=== PATIENT | male | born 1970 | race Caucasian/White ===

== ENCOUNTER → 2018-02-03 | Outpatient (CLI) | payer BC ==
[~2018-02-03] MED LIST: AMLO5 PO; BENTYL20 MG PO; CIPR500 PO; Cipro500 MG PO; Compazine10 MG PO; DOCU100 PO; Flagyl500 MG PO; GAVILAX17 GM PO; GLYB2.5 PO; Glucophage1000 MG PO; HYOS.125 SL; IBUP600 PO; INSULANPEN SC; LACT10SY PO; LAVAP17G; LAVAP17G PO; LEVEMIR FL100 UNIT/1 SC; LINZESS145 MCG PO; Lisinopril2.5 MG PO; MARIJUANA INH; METF500 PO; METO10 PO; METR500 PO; MOXI400 PO; Magnesium Citr296 ML PO; Mobic15 MG PO; NORT25 PO; Neurontin 300300 MG PO; OMEP20ER PO; OMEP40CA12 PO; ONDA4ODT MM; ONDA8 PO; OXYACE5T PO; PROM25 PO; PSYL5.85P PO; Pepcid40 MG PO; Percocet 5-3251 EACH PO; Phenergan25 M1; Prilosec Otc20 MG PO; Prinivil10 MG PO; Protonix40 MG PO; RANI150 PO; RXONDA4ODT MM; RXOXYACE PO; Reglan10 MG PO; SIMV10 PO; Ultram50 MG PO; Zantac150 MG PO; Zofran Odt4 MG SL
[2018-02-03 18:51] LABS: BASOPHILS ABSOLUTE AUTO 0.05 K/mm3 (0.00-0.23); BASOPHILS PERCENT AUTO 0 % (0-2); EOSINOPHILS ABSOLUTE AUTO 0.06 K/mm3 (0.00-0.68); EOSINOPHILS PERCENT AUTO 0 % (0-6); Hematocrit 49.1 % (37.0-53.0); Hemoglobin 17.1 g/dL (13.5-17.5); IMMATURE GRAN ABSOLUTE AUTO 0.13 K/mm3 (0.00-0.10); IMMATURE GRAN PERCENT AUTO 1 % (0-1); LYMPHOCYTES ABSOLUTE AUTO 2.93 K/mm3 (0.84-5.20); LYMPHOCYTES PERCENT AUTO 13 % (21-46); MONOCYTES ABSOLUTE AUTO 1.53 K/mm3 (0.16-1.47); MONOCYTES PERCENT AUTO 7 % (4-13); Mean Corpuscular HGB 29.6 pg (26.0-34.0); Mean Corpuscular HGB Conc 34.8 g/dL (31.5-36.5); Mean Corpuscular Volume 85 fL (80-100); Mean Platelet Volume 9.6 fL (9.1-12.4); NEUTROPHILS PERCENT AUTO 79 % (41-73); Platelet Count 300 K/mm3 (150-400); RDW Coefficient Variation 13.2 % (11.7-14.2); RDW Standard Deviation 40.6 fL (35.1-46.3); Red Blood Cell Count 5.78 M/mm3 (4.30-5.90)
[2018-02-03 19:09] LABS: Albumin, Blood 4.1 g/dL (3.4-5.0); Bilirubin, Total 1.2 mg/dL (0.1-1.0); Bun/Creatinine Ratio 25.4 (12.0-20.0); Calcium, Blood 9.4 mg/dL (8.5-10.1); Creatinine, Blood 1.38 mg/dL (0.60-1.20); Potassium, Blood 3.7 mmol/L (3.5-5.5); Total Protein, Blood 8.1 g/dL (6.4-8.2)
== END | disposition home or self-care (01) ==
LOC: LAB EV 18:47 → LAB SHORT 18:47
PROVIDERS: Physician Assistant
DX: R10.11 Right upper quadrant pain (principal)
CPT/HCPCS: 80053; 83690; 85025

== ENCOUNTER 2018-05-12 20:30 | Emergency (ER) | payer BC ==
[~2018-05-12] VITALS: Ht 172.7 cm; Wt 90.7 kg
[2018-05-12 21:01] LABS: BASOPHILS ABSOLUTE AUTO 0.05 K/mm3 (0.00-0.23); BASOPHILS PERCENT AUTO 0 % (0-2); EOSINOPHILS ABSOLUTE AUTO 0.17 K/mm3 (0.00-0.68); EOSINOPHILS PERCENT AUTO 1 % (0-6); Hematocrit 46.1 % (37.0-53.0); Hemoglobin 15.6 g/dL (13.5-17.5); IMMATURE GRAN ABSOLUTE AUTO 0.13 K/mm3 (0.00-0.10); IMMATURE GRAN PERCENT AUTO 1 % (0-1); LYMPHOCYTES ABSOLUTE AUTO 2.21 K/mm3 (0.84-5.20); LYMPHOCYTES PERCENT AUTO 12 % (21-46); MONOCYTES ABSOLUTE AUTO 0.98 K/mm3 (0.16-1.47); MONOCYTES PERCENT AUTO 5 % (4-13); Mean Corpuscular HGB 29.2 pg (26.0-34.0); Mean Corpuscular HGB Conc 33.8 g/dL (31.5-36.5); Mean Corpuscular Volume 86 fL (80-100); Mean Platelet Volume 9.9 fL (9.1-12.4); NEUTROPHILS ABSOLUTE AUTO 15.68 K/mm3 (1.96-9.15); NEUTROPHILS PERCENT AUTO 82 % (41-73); Platelet Count 266 K/mm3 (150-400); RDW Coefficient Variation 12.8 % (11.7-14.2); RDW Standard Deviation 39.9 fL (35.1-46.3); Red Blood Cell Count 5.35 M/mm3 (4.30-5.90); White Blood Cell Count 19.22 K/mm3 (4.00-11.30)
[2018-05-12 21:13] LABS: International Normalized Ratio 0.97
[2018-05-12 21:16] LABS: Alanine Aminotransfer (ALT/SGP 28 U/L (12-78); Albumin, Blood 3.8 g/dL (3.4-5.0); Albumin/Globulin Ratio 1.1 (0.8-1.8); Alk Phos 87 U/L (50-136); Anion Gap 10 mmol/L (6-16); Aspartate Aminotrans (AST/SGOT 22 U/L (12-37); Bilirubin, Total 0.5 mg/dL (0.1-1.0); Blood Urea Nitrogen 22 mg/dL (8-24); Bun/Creatinine Ratio 25.6 (12.0-20.0); CO2, Blood 24 mmol/L (21-32); Calcium, Blood 9.4 mg/dL (8.5-10.1); Chloride, Blood 103 mmol/L (98-108); Creatinine, Blood 0.86 mg/dL (0.60-1.20); Ethanol (Alcohol), Blood, Med <3 mg/dL; Globulin, Blood 3.5 g/dL (2.2-4.0); Glomerular Filtration Rate >60 (60-); Glucose, Blood 327 mg/dL (70-99); Potassium, Blood 4.4 mmol/L (3.5-5.5); Sodium, Blood 137 mmol/L (136-145); Total Protein, Blood 7.3 g/dL (6.4-8.2)
[2018-05-12] MEDS ORDERED: ROXICODONE5 MG PO (23:18)
[2018-05-12] MEDS ORDERED: IBUP800 PO (23:18)
== END 2018-05-12 23:34 | disposition home or self-care (01) ==
LOC: ER 20:30
PROVIDERS: Emergency Medicine
DX: S06.9X1A Unspecified intracranial injury with loss of consciousness of 30 minutes or less, initial encounter (principal); S42.112A Displaced fracture of body of scapula, left shoulder, initial encounter for closed fracture; S22.059A Unspecified fracture of T5-T6 vertebra, initial encounter for closed fracture; S22.069A Unspecified fracture of T7-T8 vertebra, initial encounter for closed fracture; S40.212A Abrasion of left shoulder, initial encounter; S00.81XA Abrasion of other part of head, initial encounter; S20.312A Abrasion of left front wall of thorax, initial encounter; S20.311A Abrasion of right front wall of thorax, initial encounter; S30.811A Abrasion of abdominal wall, initial encounter; E11.9 Type 2 diabetes mellitus without complications; Z88.0 Allergy status to penicillin; Z79.4 Long term (current) use of insulin; Z87.891 Personal history of nicotine dependence; V86.59XA Driver of other special all-terrain or other off-road motor vehicle injured in nontraffic accident, initial encounter
CPT/HCPCS: 36415; 70450; 71260; 72125; 74177; 80053; 85025; 85610; 96374; 96375; 99284-25; G0480; J2405; J3010; Q9967

== ENCOUNTER 2023-02-25 19:27 | Emergency (ER) | payer OTHER ==
[~2023-02-25] VITALS: Ht 167.6 cm; Wt 87.1 kg
[~2023-02-25 19:27] MED LIST changes: +CLIN300 PO; +IBUP800 PO; +ROXICODONE5 MG PO
[2023-02-25 19:34] VITALS: BP 179/102
[2023-02-25 20:21] LABS: BASOPHILS ABSOLUTE AUTO 0.06 K/mm3 (0.00-0.23); BASOPHILS PERCENT AUTO 1 % (0-2); EOSINOPHILS ABSOLUTE AUTO 0.17 K/mm3 (0.00-0.68); EOSINOPHILS PERCENT AUTO 2 % (0-6); Hematocrit 45.9 % (37.0-53.0); Hemoglobin 15.4 g/dL (13.5-17.5); IMMATURE GRAN ABSOLUTE AUTO 0.04 K/mm3 (0.00-0.10); IMMATURE GRAN PERCENT AUTO 1 % (0-1); LYMPHOCYTES ABSOLUTE AUTO 2.06 K/mm3 (0.84-5.20); LYMPHOCYTES PERCENT AUTO 25 % (21-46); MONOCYTES ABSOLUTE AUTO 0.55 K/mm3 (0.16-1.47); MONOCYTES PERCENT AUTO 7 % (4-13); Mean Corpuscular HGB 28.1 pg (26.0-34.0); Mean Corpuscular HGB Conc 33.6 g/dL (31.5-36.5); Mean Corpuscular Volume 84 fL (80-100); Mean Platelet Volume 9.4 fL (9.1-12.4); NEUTROPHILS ABSOLUTE AUTO 5.28 K/mm3 (1.96-9.15); NEUTROPHILS PERCENT AUTO 65 % (41-73); Platelet Count 277 K/mm3 (150-400); RDW Coefficient Variation 12.6 % (11.7-14.2); RDW Standard Deviation 38.3 fL (35.1-46.3); Red Blood Cell Count 5.49 M/mm3 (4.30-5.90); White Blood Cell Count 8.16 K/mm3 (4.00-11.30)
[2023-02-25 20:34] LABS: Albumin/Globulin Ratio 0.4 (0.8-1.8); Bilirubin, Total 0.4 mg/dL (0.1-1.0); Bun/Creatinine Ratio 20.6 (12.0-20.0); Calcium, Blood 8.7 mg/dL (8.5-10.1); Creatinine, Blood 1.6 mg/dL (0.60-1.20); Globulin, Blood 4.5 g/dL (2.2-4.0); Potassium, Blood 4.7 mmol/L (3.5-5.5); Total Protein, Blood 6.5 g/dL (6.4-8.2)
== END 2023-02-25 20:45 | disposition home or self-care (01) ==
LOC: ER 19:27
PROVIDERS: Physician Assistant
DX: M79.89 Other specified soft tissue disorders (principal); Z88.0 Allergy status to penicillin; Z79.899 Other long term (current) drug therapy; Z79.4 Long term (current) use of insulin; E11.9 Type 2 diabetes mellitus without complications; K21.9 Gastro-esophageal reflux disease without esophagitis; Z87.891 Personal history of nicotine dependence
CPT/HCPCS: 36415; 80053; 85025; 99283; A9270

== ENCOUNTER → 2023-04-13 | Outpatient (CLI) | payer OTHER | END | disposition home or self-care (01) | LOC: LAB 08:56 → LAB SHORT 08:56 | DX: L02.31 Cutaneous abscess of buttock (principal); L03.317 Cellulitis of buttock | CPT/HCPCS: 87070; 87075; 87076; 87205 ==

== ENCOUNTER 2023-06-23 13:47 | Emergency (ER) | payer OTHER ==
[~2023-06-23] VITALS: Ht 167.6 cm; Wt 79.4 kg
[2023-06-23 14:26] VITALS: BP 182/105
[2023-06-23] MEDS ORDERED: ACET325 (16:16)
[2023-06-23] MEDS ORDERED: TRAM50 (16:16)
[2023-06-23] MEDS ORDERED: Percocet 5-3251 EACH PO (16:23)
== END 2023-06-23 16:33 | disposition home or self-care (01) ==
LOC: ER 13:47
DX: S76.911A Strain of unspecified muscles, fascia and tendons at thigh level, right thigh, initial encounter (principal); S39.011A Strain of muscle, fascia and tendon of abdomen, initial encounter; E11.9 Type 2 diabetes mellitus without complications; W18.31XA Fall on same level due to stepping on an object, initial encounter; Z88.0 Allergy status to penicillin; Z79.4 Long term (current) use of insulin; Z79.899 Other long term (current) drug therapy; Z87.891 Personal history of nicotine dependence
CPT/HCPCS: 99283

== ENCOUNTER 2023-08-20 20:48 | Emergency (ER) | payer OTHER ==
[~2023-08-20] VITALS: Ht 167.6 cm; Wt 80.7 kg
[~2023-08-20 20:48] MED LIST changes: +ACET325; +TRAM50
[2023-08-20 21:19] VITALS: BP 166/106
[2023-08-20 21:41] LABS: BASOPHILS ABSOLUTE AUTO 0.12 K/mm3 (0.00-0.23); BASOPHILS PERCENT AUTO 2 % (0-2); EOSINOPHILS ABSOLUTE AUTO 0.31 K/mm3 (0.00-0.68); EOSINOPHILS PERCENT AUTO 4 % (0-6); Hematocrit 46.1 % (37.0-53.0); Hemoglobin 14.6 g/dL (13.5-17.5); IMMATURE GRAN ABSOLUTE AUTO 0.03 K/mm3 (0.00-0.10); IMMATURE GRAN PERCENT AUTO 0 % (0-1); LYMPHOCYTES ABSOLUTE AUTO 1.94 K/mm3 (0.84-5.20); LYMPHOCYTES PERCENT AUTO 25 % (21-46); MONOCYTES ABSOLUTE AUTO 0.62 K/mm3 (0.16-1.47); MONOCYTES PERCENT AUTO 8 % (4-13); Mean Corpuscular HGB 28.8 pg (26.0-34.0); Mean Corpuscular HGB Conc 31.7 g/dL (31.5-36.5); Mean Corpuscular Volume 91 fL (80-100); Mean Platelet Volume 10.3 fL (9.1-12.4); NEUTROPHILS PERCENT AUTO 62 % (41-73); Platelet Count 305 K/mm3 (150-400); RDW Coefficient Variation 13.9 % (11.7-14.2); RDW Standard Deviation 46.1 fL (35.1-46.3); Red Blood Cell Count 5.07 M/mm3 (4.30-5.90); White Blood Cell Count 7.92 K/mm3 (4.00-11.30)
[2023-08-20 22:00] LABS: Albumin, Blood 2.1 g/dL (3.4-5.0); Albumin/Globulin Ratio 0.6 (0.8-1.8); Bilirubin, Total 0.3 mg/dL (0.1-1.0); Bun/Creatinine Ratio 21.8 (12.0-20.0); Calcium, Blood 8.2 mg/dL (8.5-10.1); Creatinine, Blood 1.79 mg/dL (0.60-1.20); Globulin, Blood 3.8 g/dL (2.2-4.0); Potassium, Blood 4.8 mmol/L (3.5-5.5); Total Protein, Blood 5.9 g/dL (6.4-8.2)
[2023-08-20] MEDS ORDERED: Lasix20 MG PO (23:28)
[2023-08-20] MEDS ORDERED: Norvasc5 MG PO (23:30)
[2023-08-20] MEDS ORDERED: ACETAMINOPHEN500 MG PO (23:31)
== END 2023-08-21 01:35 | disposition home or self-care (01) ==
LOC: ER 20:48
PROVIDERS: Emergency Medicine
DX: I13.0 Hypertensive heart and chronic kidney disease with heart failure and stage 1 through stage 4 chronic kidney disease, or unspecified chronic kidney disease (principal); N18.30 Chronic kidney disease, stage 3 unspecified; I50.9 Heart failure, unspecified; N50.89 Other specified disorders of the male genital organs; E11.22 Type 2 diabetes mellitus with diabetic chronic kidney disease; Z88.0 Allergy status to penicillin; Z79.899 Other long term (current) drug therapy; Z79.4 Long term (current) use of insulin; K21.9 Gastro-esophageal reflux disease without esophagitis; F17.200 Nicotine dependence, unspecified, uncomplicated
CPT/HCPCS: 71046; 80053; 83880; 84484; 85025; 93005; 93010; 99284-25; A9270

== ENCOUNTER 2023-10-31 18:24 | Inpatient (IN) | payer OTHER ==
[~2023-10-31] VITALS: Ht 170.2 cm; Wt 76.8 kg
[~2023-10-31 18:24] MED LIST changes: +ACETAMINOPHEN500 MG PO; +FURO40 PO; +Lasix20 MG PO; +Norvasc5 MG PO
[2023-10-31 19:06] LABS: BASOPHILS ABSOLUTE AUTO 0.04 K/mm3 (0.00-0.23); BASOPHILS PERCENT AUTO 0 % (0-2); EOSINOPHILS ABSOLUTE AUTO 0.13 K/mm3 (0.00-0.68); EOSINOPHILS PERCENT AUTO 1 % (0-6); Hematocrit 43.6 % (37.0-53.0); Hemoglobin 14.2 g/dL (13.5-17.5); IMMATURE GRAN ABSOLUTE AUTO 0.05 K/mm3 (0.00-0.10); IMMATURE GRAN PERCENT AUTO 1 % (0-1); LYMPHOCYTES ABSOLUTE AUTO 1.59 K/mm3 (0.84-5.20); LYMPHOCYTES PERCENT AUTO 15 % (21-46); MONOCYTES ABSOLUTE AUTO 0.57 K/mm3 (0.16-1.47); MONOCYTES PERCENT AUTO 5 % (4-13); Mean Corpuscular HGB 27.5 pg (26.0-34.0); Mean Corpuscular HGB Conc 32.6 g/dL (31.5-36.5); Mean Corpuscular Volume 85 fL (80-100); Mean Platelet Volume 9.3 fL (9.1-12.4); NEUTROPHILS ABSOLUTE AUTO 8.45 K/mm3 (1.96-9.15); NEUTROPHILS PERCENT AUTO 78 % (41-73); Platelet Count 455 K/mm3 (150-400); RDW Coefficient Variation 13.3 % (11.7-14.2); RDW Standard Deviation 41.5 fL (35.1-46.3); Red Blood Cell Count 5.16 M/mm3 (4.30-5.90); White Blood Cell Count 10.83 K/mm3 (4.00-11.30)
[2023-10-31 19:33] LABS: Albumin/Globulin Ratio 0.4 (0.8-1.8); Bilirubin, Total 0.3 mg/dL (0.1-1.0); Bun/Creatinine Ratio 27.5 (12.0-20.0); Calcium, Blood 8.5 mg/dL (8.5-10.1); Creatinine, Blood 1.89 mg/dL (0.60-1.20); Globulin, Blood 4.7 g/dL (2.2-4.0); Potassium, Blood 4.7 mmol/L (3.5-5.5); Total Protein, Blood 6.7 g/dL (6.4-8.2)
[2023-11-01 00:59] VITALS: BP 143/90
--- NOTE | 2023-11-01 03:03 | NUR ---
SHIFT SUMMARY 0025 RECEIVED PT TO 327 VIA W/C FROM ER. PT ABLE TO TX SELF TO BED AND IMMEDIATELY GOING INTO BTHRM TO VOID. PT IS UNSTEADY D/T LLE PAIN AND SWELLING. PT REFUSING TO USE FWW, THOUGH UNSTEADY AND HAVING RECENT FALLS AT HOME. TO WITH PT AND REPORTED PT DOES USE FWW OR CANE AT HOME. PT UP TO BTHRM SEVERAL TIMES TO VOID SINCE ADMISSION; URINAL OFFERED AT BS. PT WANTING TO GET UP TO BTHRM. IV ALBUMIN GIVEN PER EMAR. PT C/O PAIN TO LLE, WHICH IS SWOLLEN TO THIGH. PT DECLINED ICE OR HEAT. PT HAVING DRY HEAVES WHEN COMING TO , AFTER BEING GIVEN IV DILAUDID IN ER. PER , IV DILAUDID CAUSING N/V. PT DECLINED ANYTHING FOR IT. PT RESTING QUIETLY AT THIS TIME. CALL LT IN REACH.
[2023-11-01 03:37] VITALS: BP 158/98
[2023-11-01 05:06] LABS: BASOPHILS ABSOLUTE AUTO 0.05 K/mm3 (0.00-0.23); BASOPHILS PERCENT AUTO 1 % (0-2); EOSINOPHILS ABSOLUTE AUTO 0.15 K/mm3 (0.00-0.68); EOSINOPHILS PERCENT AUTO 2 % (0-6); Hematocrit 39.8 % (37.0-53.0); Hemoglobin 12.9 g/dL (13.5-17.5); IMMATURE GRAN ABSOLUTE AUTO 0.05 K/mm3 (0.00-0.10); IMMATURE GRAN PERCENT AUTO 1 % (0-1); LYMPHOCYTES ABSOLUTE AUTO 1.66 K/mm3 (0.84-5.20); LYMPHOCYTES PERCENT AUTO 16 % (21-46); MONOCYTES ABSOLUTE AUTO 0.63 K/mm3 (0.16-1.47); MONOCYTES PERCENT AUTO 6 % (4-13); Mean Corpuscular HGB 27.4 pg (26.0-34.0); Mean Corpuscular HGB Conc 32.4 g/dL (31.5-36.5); Mean Corpuscular Volume 85 fL (80-100); Mean Platelet Volume 9.3 fL (9.1-12.4); NEUTROPHILS ABSOLUTE AUTO 7.62 K/mm3 (1.96-9.15); NEUTROPHILS PERCENT AUTO 75 % (41-73); Platelet Count 398 K/mm3 (150-400); RDW Coefficient Variation 13.3 % (11.7-14.2); RDW Standard Deviation 41.6 fL (35.1-46.3); White Blood Cell Count 10.16 K/mm3 (4.00-11.30)
[2023-11-01 05:52] LABS: Albumin, Blood 2.1 g/dL (3.4-5.0); Albumin/Globulin Ratio 0.5 (0.8-1.8); Bilirubin, Total 0.3 mg/dL (0.1-1.0); Bun/Creatinine Ratio 28.3 (12.0-20.0); Creatinine, Blood 1.87 mg/dL (0.60-1.20); Globulin, Blood 4.1 g/dL (2.2-4.0); Potassium, Blood 4.7 mmol/L (3.5-5.5); Total Protein, Blood 6.2 g/dL (6.4-8.2)
[2023-11-01 07:41] VITALS: BP 132/109
[2023-11-01 15:53] VITALS: BP 163/95
--- NOTE | 2023-11-01 18:30 | NUR ---
SHIFT SUMMARY PT UP TO BATHROOM INDEPENDENTLY BUT REMINDING PT TO PLEASE CALL FOR HELP FIRST AND USE FWW BUT DOESN'T AND WHEN NOT IN ROOM BED ALARM ON. MEDICATED FOR SPASMS TO LLE THIS MORNING AND PT FELL ASLEEP BUT WAS WAKENED BY CAREGIVER. MEDICATED WITH NORCO AND FLEXERIL AND PT SLEPT ON AND OFF THIS AFTERNOON. MOANING AND CRYING AT TIMES DUE TO PAIN TO LLE AND DOZING AT TIMES, SHOWER BEING TAKEN AT THIS TIME. DENIES RESP DISTRESS.
[2023-11-01 19:47] VITALS: BP 147/85
[2023-11-02 04:03] VITALS: BP 182/106
[2023-11-02 05:36] VITALS: BP 160/96
[2023-11-02 06:00] LABS: BASOPHILS ABSOLUTE AUTO 0.05 K/mm3 (0.00-0.23); BASOPHILS PERCENT AUTO 1 % (0-2); EOSINOPHILS ABSOLUTE AUTO 0.21 K/mm3 (0.00-0.68); EOSINOPHILS PERCENT AUTO 2 % (0-6); Hematocrit 39.8 % (37.0-53.0); IMMATURE GRAN ABSOLUTE AUTO 0.02 K/mm3 (0.00-0.10); IMMATURE GRAN PERCENT AUTO 0 % (0-1); LYMPHOCYTES ABSOLUTE AUTO 1.94 K/mm3 (0.84-5.20); LYMPHOCYTES PERCENT AUTO 22 % (21-46); MONOCYTES ABSOLUTE AUTO 0.63 K/mm3 (0.16-1.47); MONOCYTES PERCENT AUTO 7 % (4-13); Mean Corpuscular HGB 27.4 pg (26.0-34.0); Mean Corpuscular HGB Conc 32.7 g/dL (31.5-36.5); Mean Corpuscular Volume 84 fL (80-100); Mean Platelet Volume 9.9 fL (9.1-12.4); NEUTROPHILS PERCENT AUTO 67 % (41-73); Platelet Count 391 K/mm3 (150-400); RDW Coefficient Variation 13.5 % (11.7-14.2); RDW Standard Deviation 41.2 fL (35.1-46.3); Red Blood Cell Count 4.74 M/mm3 (4.30-5.90); White Blood Cell Count 8.65 K/mm3 (4.00-11.30)
[2023-11-02 06:25] LABS: Albumin, Blood 1.9 g/dL (3.4-5.0); Anion Gap 6 mmol/L (6-16); Blood Urea Nitrogen 56 mg/dL (8-24); Bun/Creatinine Ratio 30.8 (12.0-20.0); CO2, Blood 26 mmol/L (21-32); Calcium, Blood 8.1 mg/dL (8.5-10.1); Chloride, Blood 105 mmol/L (98-108); Creatinine, Blood 1.82 mg/dL (0.60-1.20); Glomerular Filtration Rate 44 (60-); Glucose, Blood 162 mg/dL (70-99); Magnesium, Blood 1.9 mg/dL (1.6-2.4); Phosphorus, Blood 4.2 mg/dL (2.5-4.9); Potassium, Blood 4.3 mmol/L (3.5-5.5); Sodium, Blood 137 mmol/L (136-145)
--- NOTE | 2023-11-02 06:25 | NUR ---
SHIFT SUMMARY: PT IS ADMITTED FOR CHF EXACERBATION AND IS A FULL CODE. IS ALERT AND ABLE TO MAKE NEEDS KNOWN. ADLs HAVE BEEN 1P MIN THROUGH SHIFT. IS ON A 1500 ML FLUID RESTRICTION AND HAS BEEN COMPLIANT. WAS GIVEN NORCO PRN X2 THIS SHIFT. IV RIGHT FOREARM IS PATENT WITH DRESSING THAT IS CDI. [facility] REPORTS SINUS @ [address] ELEVATION OF AROUND 2.4. HYDRALAZINE GIVEN PRN X1. SPOKE WITH DR GREENBERG ABOUT ST ELEVATIONS HE GAVE ORDERS FOR 12 LEAD EKG AND TO MONITOR FOR OTHER SX.
[2023-11-02 07:59] VITALS: BP 150/88
[2023-11-02 15:36] VITALS: BP 156/97
--- NOTE | 2023-11-02 17:45 | NUR ---
SHIFT SUMMARY PT UP TO BATHROOM USING FWW WITH IN ROOM THROUGH THE DAY. APPEARS MORE STABLE ON HIS FEET TODAY. SWELLING LESS TO LLE FROM YESTERDAY. STATES THE SPASMS ARE LESS TODAY. STATES HE IS RESTING BETTER THAN HE HAS FOR SEVERAL WEEKS.
[2023-11-02 19:36] VITALS: BP 147/86
[2023-11-03 02:31] VITALS: BP 145/88
--- NOTE | 2023-11-03 05:22 | NUR ---
SHIFT SUMMARY: PATIENT A/OX4, PLEASANT AND COOPERATIVE c CARE. PATIENT REPORTS SWELLING TO L LEG HAS IMPROVED AND PAIN 5-8/10, MEDICATED c PRN PAIN MEDS AND FLEXERIL c MODERATE EFFECT. PATIENT IS CONTINENCE OF BLADDER, AMBULATES TO BATHROOM c SBA AND USES URINAL c A TOTAL OF 1,650 MLS URINE OUTPUT THIS SHIFT. PATIENT STILL ON 1500 FR. PATIENT DENIES CP/PRESSURE, SOB, N/V AND DIZZINESS. PATIENT ON TELE, SR HR IN THE HIGH 70'S BPM c OCCASIONAL BBB. PATIENT SLEPT OFF AND ON T/O SHIFT, RECEIVED SCHEDULED MEDS PER. VITAL SIGNS REVIEWED. CALL LIGHT IN REACH.
[2023-11-03 05:45] LABS: BASOPHILS ABSOLUTE AUTO 0.05 K/mm3 (0.00-0.23); BASOPHILS PERCENT AUTO 1 % (0-2); EOSINOPHILS ABSOLUTE AUTO 0.26 K/mm3 (0.00-0.68); EOSINOPHILS PERCENT AUTO 3 % (0-6); Hematocrit 40.1 % (37.0-53.0); Hemoglobin 13.2 g/dL (13.5-17.5); IMMATURE GRAN ABSOLUTE AUTO 0.04 K/mm3 (0.00-0.10); IMMATURE GRAN PERCENT AUTO 0 % (0-1); LYMPHOCYTES ABSOLUTE AUTO 2.22 K/mm3 (0.84-5.20); LYMPHOCYTES PERCENT AUTO 23 % (21-46); MONOCYTES ABSOLUTE AUTO 0.81 K/mm3 (0.16-1.47); MONOCYTES PERCENT AUTO 8 % (4-13); Mean Corpuscular HGB 27.6 pg (26.0-34.0); Mean Corpuscular HGB Conc 32.9 g/dL (31.5-36.5); Mean Corpuscular Volume 84 fL (80-100); Mean Platelet Volume 10.3 fL (9.1-12.4); NEUTROPHILS ABSOLUTE AUTO 6.46 K/mm3 (1.96-9.15); NEUTROPHILS PERCENT AUTO 66 % (41-73); Platelet Count 415 K/mm3 (150-400); RDW Coefficient Variation 13.6 % (11.7-14.2); Red Blood Cell Count 4.78 M/mm3 (4.30-5.90); White Blood Cell Count 9.84 K/mm3 (4.00-11.30)
[2023-11-03 06:10] LABS: Albumin, Blood 1.8 g/dL (3.4-5.0); Anion Gap 3 mmol/L (6-16); Blood Urea Nitrogen 61 mg/dL (8-24); Bun/Creatinine Ratio 27.6 (12.0-20.0); CO2, Blood 29 mmol/L (21-32); Chloride, Blood 103 mmol/L (98-108); Creatinine, Blood 2.21 mg/dL (0.60-1.20); Glomerular Filtration Rate 35 (60-); Glucose, Blood 195 mg/dL (70-99); Phosphorus, Blood 4.5 mg/dL (2.5-4.9); Potassium, Blood 4.4 mmol/L (3.5-5.5); Sodium, Blood 135 mmol/L (136-145)
[2023-11-03 07:38] VITALS: BP 162/98
[2023-11-03 15:36] VITALS: BP 147/97
--- NOTE | 2023-11-03 18:16 | NUR ---
SHIFT SUMMARY PT TOOK A WALK IN THE HALLWAY USING FWW WITH . REPORTED PAIN IN LLE WHEN RETURNED. UP TO BATHROOM INDEPENDENTLY USING FWW. REPORTS CONTINUED TENSION LIKE A FIST IN HIS POSTERIOR LEG AND BEHIND KNEE. POSSIBLE DISCHARGE TOMORROW.
[2023-11-03 19:25] VITALS: BP 138/85
[2023-11-04 04:15] VITALS: BP 152/90
--- NOTE | 2023-11-04 04:40 | NUR ---
1900: ASSUMED CARE OF PT. REPORT RECEIVED FROM DAY SHIFT RN. PT IS FOUND TO BE IN THE SHOWER. SPOUSE AT THE BEDSIDE. PT IS A/O, AMBULATORY. TELEMETRY PLACED BACK ON AFTER SHOWER BY SARAH. PT REPORTS PAIN TONIGHT IN THE LEFT THIGH. MEDICATED PER EMR. SLEPT MOST OF THE NIGHT WITH PAIN MEDICATION REQUEST X3. NO FURTHER NEEDS. SEE EMR FOR COMPLETE ROS. SAFETY MEASURES TAKEN, NEEDS MET.
[2023-11-04 05:58] LABS: Bun/Creatinine Ratio 28.4 (12.0-20.0); Calcium, Blood 7.9 mg/dL (8.5-10.1); Creatinine, Blood 2.11 mg/dL (0.60-1.20); Potassium, Blood 4.6 mmol/L (3.5-5.5)
[2023-11-04 07:18] VITALS: BP 161/91
[2023-11-04 15:41] VITALS: BP 142/85
--- NOTE | 2023-11-04 17:26 | NUR ---
SUMMARY- AAOX4 AND SBA IN ROOM TO BATHROOM. PT COMPLAINED OF LLE PAIN THIS SHIFT, WHICH WAS WELL CONTROLLED BY EMAR MEDS.
[2023-11-04 19:50] VITALS: BP 120/73
--- NOTE | 2023-11-05 03:40 | NUR ---
PT NOTIFIED OF CHANGE IN PT STATUS AND TRANSFER BACK TO PCU 07.
[2023-11-05 04:16] VITALS: BP 150/79
--- NOTE | 2023-11-05 05:55 | NUR ---
SHIFT SUMMARY NOC PT A/O X 4. PLEASANT AND COOPERATIVE WITH CARE. PT LLE SLIGHTLY SWOLLEN. MRI SHOWED POSSIBLE EDEMA, MYOSITIS, AND INTRAMUSCULAR HEMORRHAGE, RULING OUT CELLULITIS. PT PAIN HAS BEEN MANAGED PER EMAR. PT ON TELE RUNNING SINUS RHYTHM @ 76 BPM. PT IS POSSIBLE DISCHARGE HOME TODAY PENDING AM LABS. PT IS CURRENTLY RESTING WITH BED IN LOWEST POSITION, AND CALL LIGHT WITHIN REACH.
[2023-11-05 07:08] LABS: Bun/Creatinine Ratio 32.2 (12.0-20.0); Creatinine, Blood 2.02 mg/dL (0.60-1.20); Potassium, Blood 4.9 mmol/L (3.5-5.5)
[2023-11-05 07:31] VITALS: BP 162/97
[2023-11-05] MEDS ORDERED: Cyclobenzaprine5 MG PO (12:09)
[2023-11-05] MEDS ORDERED: JARDIANCE10 MG PO (12:10)
[2023-11-05] MEDS ORDERED: Norco 5-325 Ta1 EACH PO (12:11)
[2023-11-05] MEDS ORDERED: BASAGLAR K100 UNIT/1 SC (12:13)
[2023-11-05] MEDS ORDERED: METO25 PO (12:14)
--- NOTE | 2023-11-05 13:41 | NUR ---
1235-DC PT BROUGHT DOWN FOR DC IN WC BY THIS RN ACCOMPANIED BY FRIEND. PT LEFT WITH ALL BELONGINGS.
== END 2023-11-05 12:45 | disposition home or self-care (01) | DRG 291 ==
LOC: ER 18:24 → MEDS 18:25
PROVIDERS: Family Medicine; Student in an Organized Health Care Education/Training Program; ADMIT Internal Medicine
DX: I13.0 Hypertensive heart and chronic kidney disease with heart failure and stage 1 through stage 4 chronic kidney disease, or unspecified chronic kidney disease (principal); I50.23 Acute on chronic systolic (congestive) heart failure; E87.1 Hypo-osmolality and hyponatremia; N17.9 Acute kidney failure, unspecified; N18.30 Chronic kidney disease, stage 3 unspecified; M60.9 Myositis, unspecified; M79.652 Pain in left thigh; E11.22 Type 2 diabetes mellitus with diabetic chronic kidney disease; D63.1 Anemia in chronic kidney disease; F17.210 Nicotine dependence, cigarettes, uncomplicated; E11.65 Type 2 diabetes mellitus with hyperglycemia; D75.839 Thrombocytosis, unspecified; K21.9 Gastro-esophageal reflux disease without esophagitis; Z79.01 Long term (current) use of anticoagulants; Z79.899 Other long term (current) drug therapy; Z88.0 Allergy status to penicillin; Z90.49 Acquired absence of other specified parts of digestive tract; R60.0 Localized edema; Z79.4 Long term (current) use of insulin
CPT/HCPCS: 36415; 51798; 71046; 72148; 72170; 73552; 73560-LT; 73700; 73718; 80048; 80053; 80069; 82550; 82947; 83735; 83880; 84484; 85025; 93005; 93010; 93306; 93971; 96365; 96372; 96374; 96374-59; 96375; 96375-59; 96376; 97110; 97140; 97161; 99284-25; A9270; G0378; J0360; J1170; J1650; J1815; J1885; J1940; J2405; J3010; J3360; P9047

== ENCOUNTER → 2024-02-15 | Outpatient (CLI) | payer OTHER ==
[~2024-02-15] MED LIST changes: +BASAGLAR K100 UNIT/1 SC; +Cyclobenzaprine5 MG PO; +JARDIANCE10 MG PO; +METO25 PO; +Norco 5-325 Ta1 EACH PO
[2024-02-15 14:24] LABS: Protein, Urine Quantitative 382.5 mg/dL (0.0-11.9)
[2024-02-21 15:04] LABS: ALBUMIN %,URINE 55.3 %; ALPHA-2 %,URINE 8.3 %; BETA GLOBULIN %,URINE 17.3 %; GAMMA GLOBULIN %,URINE 10.1 %; HOURS COLLECTED Random hr; TOTAL PROTEIN,URINE-PER VOLUME 542 mg/dL; TOTAL VOLUME Random mL
== END | disposition home or self-care (01) ==
LOC: LAB 09:54 → LAB SHORT 09:54 → EDSTATUS 01-30 14:00 → LAB FUT 01-30 14:00
PROVIDERS: Internal Medicine Nephrology
DX: N18.30 Chronic kidney disease, stage 3 unspecified (principal); D63.1 Anemia in chronic kidney disease; D75.1 Secondary polycythemia; N25.81 Secondary hyperparathyroidism of renal origin; E55.9 Vitamin D deficiency, unspecified; E78.00 Pure hypercholesterolemia, unspecified; R76.9 Abnormal immunological finding in serum, unspecified; R94.5 Abnormal results of liver function studies; R94.6 Abnormal results of thyroid function studies; D51.8 Other vitamin B12 deficiency anemias; D52.8 Other folate deficiency anemias; D50.9 Iron deficiency anemia, unspecified
CPT/HCPCS: 81050; 82043; 82570; 84156; 84166; 86335

== ENCOUNTER → 2024-04-12 | Outpatient (CLI) | payer OTHER ==
[2024-04-12 14:07] LABS: Protein, Urine Quantitative 361.9 mg/dL (0.0-11.9)
== END ==
LOC: LAB SHORT 07:00 → LAB 07:00 → EDSTATUS 03-14 13:00 → LAB FUT 03-14 13:00
PROVIDERS: Internal Medicine Nephrology
DX: N18.30 Chronic kidney disease, stage 3 unspecified (principal); D63.1 Anemia in chronic kidney disease; N25.81 Secondary hyperparathyroidism of renal origin; E55.9 Vitamin D deficiency, unspecified; E29.1 Testicular hypofunction; R76.9 Abnormal immunological finding in serum, unspecified; R94.5 Abnormal results of liver function studies; R94.6 Abnormal results of thyroid function studies
CPT/HCPCS: 82043; 82570; 84156

== ENCOUNTER → 2024-04-19 | Outpatient (CLI) | payer OTHER | END | disposition home or self-care (01) | LOC: LAB SHORT 17:36 → LAB 17:36 | DX: R10.84 Generalized abdominal pain (principal) | CPT/HCPCS: 87086 ==

== ENCOUNTER 2024-05-29 13:06 | Emergency (ER) | payer OTHER ==
[~2024-05-29] VITALS: Ht 167.6 cm; Wt 77.1 kg
[2024-05-29 13:41] VITALS: BP 164/93
[2024-05-29 14:06] LABS: BASOPHILS ABSOLUTE AUTO 0.07 K/mm3 (0.00-0.23); BASOPHILS PERCENT AUTO 1 % (0-2); EOSINOPHILS ABSOLUTE AUTO 0.28 K/mm3 (0.00-0.68); EOSINOPHILS PERCENT AUTO 3 % (0-6); Hematocrit 38.1 % (37.0-53.0); Hemoglobin 12.6 g/dL (13.5-17.5); IMMATURE GRAN ABSOLUTE AUTO 0.04 K/mm3 (0.00-0.10); IMMATURE GRAN PERCENT AUTO 1 % (0-1); LYMPHOCYTES ABSOLUTE AUTO 1.47 K/mm3 (0.84-5.20); LYMPHOCYTES PERCENT AUTO 17 % (21-46); MONOCYTES ABSOLUTE AUTO 0.61 K/mm3 (0.16-1.47); MONOCYTES PERCENT AUTO 7 % (4-13); Mean Corpuscular HGB 27.8 pg (26.0-34.0); Mean Corpuscular HGB Conc 33.1 g/dL (31.5-36.5); Mean Corpuscular Volume 84 fL (80-100); NEUTROPHILS ABSOLUTE AUTO 6.06 K/mm3 (1.96-9.15); NEUTROPHILS PERCENT AUTO 71 % (41-73); Platelet Count 258 K/mm3 (150-400); RDW Coefficient Variation 14.1 % (11.7-14.2); RDW Standard Deviation 43.5 fL (35.1-46.3); Red Blood Cell Count 4.53 M/mm3 (4.30-5.90); White Blood Cell Count 8.53 K/mm3 (4.00-11.30)
[2024-05-29 14:24] LABS: Albumin/Globulin Ratio 0.8 (0.8-1.8); Bilirubin, Total 0.5 mg/dL (0.1-1.0); Bun/Creatinine Ratio 25.8 (12.0-20.0); Calcium, Blood 8.1 mg/dL (8.5-10.1); Creatinine, Blood 2.75 mg/dL (0.60-1.20); Globulin, Blood 3.8 g/dL (2.2-4.0); Potassium, Blood 4.1 mmol/L (3.5-5.5); Total Protein, Blood 6.8 g/dL (6.4-8.2)
== END 2024-05-29 16:00 | disposition left against medical advice (07) ==
LOC: ER 13:06
PROVIDERS: Emergency Medicine
DX: R11.2 Nausea with vomiting, unspecified (principal); R19.7 Diarrhea, unspecified; R03.0 Elevated blood-pressure reading, without diagnosis of hypertension; R07.9 Chest pain, unspecified; Z53.21 Procedure and treatment not carried out due to patient leaving prior to being seen by health care provider
CPT/HCPCS: 80053; 84484; 85025; 93005; 93010

== ENCOUNTER 2024-06-21 19:45 | Inpatient (IN) | payer OTHER ==
[~2024-06-21] VITALS: Ht 167.6 cm; Wt 83.6 kg
[~2024-06-21 19:45] MED LIST changes: +AMOCLA875 PO; +CYMBALTA30 M2 PO; +HYDRA25 PO; +Insulin Human Lispro 100 Units/ML 3ML Syringe SC SCH; -METO25 PO; +METO25ER PO
[2024-06-21 20:28] LABS: BASOPHILS ABSOLUTE AUTO 0.06 K/mm3 (0.00-0.23); BASOPHILS PERCENT AUTO 1 % (0-2); EOSINOPHILS ABSOLUTE AUTO 0.05 K/mm3 (0.00-0.68); EOSINOPHILS PERCENT AUTO 0 % (0-6); Hemoglobin 10.6 g/dL (13.5-17.5); IMMATURE GRAN ABSOLUTE AUTO 0.06 K/mm3 (0.00-0.10); IMMATURE GRAN PERCENT AUTO 1 % (0-1); LYMPHOCYTES ABSOLUTE AUTO 0.97 K/mm3 (0.84-5.20); LYMPHOCYTES PERCENT AUTO 7 % (21-46); MONOCYTES ABSOLUTE AUTO 0.91 K/mm3 (0.16-1.47); MONOCYTES PERCENT AUTO 7 % (4-13); Mean Corpuscular HGB 27.8 pg (26.0-34.0); Mean Corpuscular HGB Conc 33.1 g/dL (31.5-36.5); Mean Corpuscular Volume 84 fL (80-100); Mean Platelet Volume 10.6 fL (9.1-12.4); NEUTROPHILS ABSOLUTE AUTO 10.98 K/mm3 (1.96-9.15); NEUTROPHILS PERCENT AUTO 84 % (41-73); Platelet Count 369 K/mm3 (150-400); RDW Coefficient Variation 14.8 % (11.7-14.2); RDW Standard Deviation 45.3 fL (35.1-46.3); Red Blood Cell Count 3.81 M/mm3 (4.30-5.90); White Blood Cell Count 13.03 K/mm3 (4.00-11.30)
[2024-06-21 21:28] LABS: Albumin, Blood 2.5 g/dL (3.4-5.0); Albumin/Globulin Ratio 0.6 (0.8-1.8); Bilirubin, Total 0.8 mg/dL (0.1-1.0); Bun/Creatinine Ratio 23.2 (12.0-20.0); Calcium, Blood 8.2 mg/dL (8.5-10.1); Creatinine, Blood 3.11 mg/dL (0.60-1.20); Globulin, Blood 4.4 g/dL (2.2-4.0); Potassium, Blood 4.2 mmol/L (3.5-5.5); Total Protein, Blood 6.9 g/dL (6.4-8.2)
[2024-06-21] MEDS ORDERED: Vancomycin HCL 1,500 MG in NS 250 ML IV ONE (22:15)
[2024-06-21] MEDS ORDERED: Acetaminophen 650 MG Supp PR PRN (23:20)
[2024-06-21] MEDS ORDERED: Ondansetron HCl 2 MG / ML 2ML Vial IV PRN (23:20)
[2024-06-21] MEDS ORDERED: Acetaminophen 325 MG TABLET PO PRN (23:20)
[2024-06-21] MEDS ORDERED: HYDROcodone 5-APAP 325 TAB PO PRN (23:30)
[2024-06-22] MEDS ORDERED: Piperacillin/Tazobactam Sod 4.5 GM in NS 100 ML IV SCH
[2024-06-22] MEDS ORDERED: ASSURE PLATINU1 EAC2 MC (00:36)
[2024-06-22] MEDS ORDERED: SODBIC650 PO (00:36)
[2024-06-22 01:18] LABS: C-REACTIVE PROTEIN, EXT RANGE 2.71 mg/dL (0.000-0.300)
[2024-06-22 01:20] VITALS: BP 187/91
[2024-06-22] MEDS ORDERED: Insulin Human Lispro 100 Units/ML 3ML Syringe SC SCH (01:26)
[2024-06-22] MEDS ORDERED: HydrALAZINE HCl 50 MG Tab PO ONE (02:35)
[2024-06-22] MEDS ORDERED: NS 250 ML IV PRN (03:25)
--- NOTE | 2024-06-22 04:17 | NUR ---
ADMIT CAME TO UNIT FROM ER AROUND 0115. STAND-BY TRANSFER. ROOM AIR. LEFT FOOT CULLULITIS OUTLINED AND PHOTOS TAKEN. REDNESS AND EDEMA PRESENT. BLISTERS TO BILAT GREAT TOES. NO DRAINAGE TO ANY SITES. MRI FORM COMPLETED AND FAXED. ABLE TO MAKE NEEDS KNOWN. CALL LIGHT IN REACH. NONSKID SOCKS ON. NEUROPATHY TO BIALTERAL FEET. PRN NORCO GIVEN PRIOR TO ARRIVAL TO UNIT WHICH WAS EFFECTIVE. IV ANTIBIOTICS GIVEN IN ER, IV IN LFA, SALINE LOCKED.
[2024-06-22 05:39] LABS: BASOPHILS ABSOLUTE AUTO 0.07 K/mm3 (0.00-0.23); BASOPHILS PERCENT AUTO 1 % (0-2); EOSINOPHILS ABSOLUTE AUTO 0.07 K/mm3 (0.00-0.68); EOSINOPHILS PERCENT AUTO 1 % (0-6); Hematocrit 30.6 % (37.0-53.0); Hemoglobin 10.2 g/dL (13.5-17.5); IMMATURE GRAN ABSOLUTE AUTO 0.03 K/mm3 (0.00-0.10); IMMATURE GRAN PERCENT AUTO 0 % (0-1); LYMPHOCYTES ABSOLUTE AUTO 1.24 K/mm3 (0.84-5.20); LYMPHOCYTES PERCENT AUTO 11 % (21-46); MONOCYTES ABSOLUTE AUTO 0.95 K/mm3 (0.16-1.47); MONOCYTES PERCENT AUTO 9 % (4-13); Mean Corpuscular HGB 28.2 pg (26.0-34.0); Mean Corpuscular HGB Conc 33.3 g/dL (31.5-36.5); Mean Corpuscular Volume 85 fL (80-100); Mean Platelet Volume 9.7 fL (9.1-12.4); NEUTROPHILS ABSOLUTE AUTO 8.59 K/mm3 (1.96-9.15); NEUTROPHILS PERCENT AUTO 79 % (41-73); Platelet Count 318 K/mm3 (150-400); RDW Coefficient Variation 14.5 % (11.7-14.2); RDW Standard Deviation 44.4 fL (35.1-46.3); Red Blood Cell Count 3.62 M/mm3 (4.30-5.90); White Blood Cell Count 10.95 K/mm3 (4.00-11.30)
[2024-06-22 05:47] VITALS: BP 153/83
[2024-06-22 06:15] LABS: Albumin, Blood 2.2 g/dL (3.4-5.0); Albumin/Globulin Ratio 0.5 (0.8-1.8); Bilirubin, Total 0.9 mg/dL (0.1-1.0); Bun/Creatinine Ratio 24.1 (12.0-20.0); Calcium, Blood 8.2 mg/dL (8.5-10.1); Creatinine, Blood 3.11 mg/dL (0.60-1.20); Globulin, Blood 4.1 g/dL (2.2-4.0); Potassium, Blood 4.1 mmol/L (3.5-5.5); Total Protein, Blood 6.3 g/dL (6.4-8.2)
[2024-06-22 07:21] VITALS: BP 165/89
[2024-06-22] MEDS ORDERED: Lactobacil 2-S.Thermo-Bifido 1 1 Cap PO SCH (09:00)
[2024-06-22] MEDS ORDERED: Furosemide 40 MG Tab PO SCH (09:00)
[2024-06-22] MEDS ORDERED: Heparin Sodium,Porcine 5,000 UNIT/0.5 ML SDV SC SCH (09:00)
[2024-06-22] MEDS ORDERED: DULoxetine HCL 30 MG Cap DR PO SCH (09:00)
[2024-06-22] MEDS ORDERED: Metoprolol Succinate 25 MG TABCR PO SCH (09:00)
[2024-06-22] MEDS ORDERED: HydrALAZINE HCl 50 MG Tab PO SCH (09:00)
[2024-06-22 10:21] LABS: Vancomycin, Random 21.5 ug/mL
[2024-06-22] MEDS ORDERED: Vancomycin HCL 750 MG in NS 250 ML IV ONE (16:00)
[2024-06-22 16:04] VITALS: BP 171/87
--- NOTE | 2024-06-22 18:46 | NUR ---
SHIFT SUMMARY- PT ALERT, ORIENTED AND INDEPENDENT TO THE BATHROOM. MRI COMPLETED TODAY. PT WOULD LIKE TO KNOW THE RESULT OF THE MRI WHEN DR ROUNDS TOMORROW. PODIATRY CONSULT NOT COMPLETED THERE IS NO EXAMINATION SCORER PODIATRY TODAY. CALLED AND LEFT A VMAIL FOR DR CRUZ SO HE IS AWARE THERE IS NO PODIATRY COVERAGE UNTIL TOMORROW. CONSULT NOT CALLED. PT STATED THE PAIN IS MUCH BETTER TODAY WHEN COMPAIRED TO YESTERDAY. THE REDNESS APPEARS TO BE RECEEDING FROM THE MARKED BORDERS ON THE MEDAL ASPECT OF THE FOOT. PT IN BED CALL LIGHT IN REACH SO AT THE BEDSIDE.
[2024-06-22 19:32] VITALS: BP 179/93
[2024-06-22] MEDS ORDERED: Insulin Glargine-Yfgn 100 Unit/mL 3 ML SYR SC SCH (21:00)
[2024-06-23 00:41] VITALS: BP 166/89
[2024-06-23 03:43] VITALS: BP 142/74
--- NOTE | 2024-06-23 03:49 | NUR ---
SHIFT SUMMARY PT WAS NAUSEAS AT SHIFT CHANGE, HAD VOMITED JUST PRIOR TO BEDSIDE REPORT, BUT PATIENT DENIED OFFER OF NAUSEA MEDICINE. WHEN ATTEMTPTING TO GIVE PT EVENING MEDICATIONS HE WAS STILL NAUSEAS AND WANTED TO WAIT TO TAKE PILLS. BLOOD PRESSURE MEDICATIONS WERE DELAYED DUE TO NAUSEA, AROUND 2320 PT AGREED TO TAKE PRN ZOFRAN WHICH WAS EFFECTIVE IN REDUCING NAUSEA. PRN NORCO GIVEN X1, PAIN TO LEFT FOOT HAS REDUCED IN SEVERITY SINCE ADMISSION. AMBULATES TO BATHROOM INDEPENDENTLY. ABLE TO MAKE NEEDS KNOWN. CALL LIGHT IN REACH
[2024-06-23 05:31] LABS: BASOPHILS ABSOLUTE AUTO 0.08 K/mm3 (0.00-0.23); BASOPHILS PERCENT AUTO 1 % (0-2); EOSINOPHILS ABSOLUTE AUTO 0.06 K/mm3 (0.00-0.68); EOSINOPHILS PERCENT AUTO 1 % (0-6); Hematocrit 31.6 % (37.0-53.0); Hemoglobin 10.3 g/dL (13.5-17.5); IMMATURE GRAN ABSOLUTE AUTO 0.04 K/mm3 (0.00-0.10); IMMATURE GRAN PERCENT AUTO 0 % (0-1); LYMPHOCYTES ABSOLUTE AUTO 1.37 K/mm3 (0.84-5.20); LYMPHOCYTES PERCENT AUTO 14 % (21-46); MONOCYTES ABSOLUTE AUTO 0.93 K/mm3 (0.16-1.47); MONOCYTES PERCENT AUTO 9 % (4-13); Mean Corpuscular HGB 27.4 pg (26.0-34.0); Mean Corpuscular HGB Conc 32.6 g/dL (31.5-36.5); Mean Corpuscular Volume 84 fL (80-100); Mean Platelet Volume 9.7 fL (9.1-12.4); NEUTROPHILS ABSOLUTE AUTO 7.43 K/mm3 (1.96-9.15); NEUTROPHILS PERCENT AUTO 75 % (41-73); Platelet Count 352 K/mm3 (150-400); RDW Coefficient Variation 14.6 % (11.7-14.2); RDW Standard Deviation 44.6 fL (35.1-46.3); Red Blood Cell Count 3.76 M/mm3 (4.30-5.90); White Blood Cell Count 9.91 K/mm3 (4.00-11.30)
[2024-06-23 06:04] LABS: Albumin, Blood 2.2 g/dL (3.4-5.0); Albumin/Globulin Ratio 0.5 (0.8-1.8); Bun/Creatinine Ratio 24.2 (12.0-20.0); Calcium, Blood 8.3 mg/dL (8.5-10.1); Creatinine, Blood 2.85 mg/dL (0.60-1.20); Globulin, Blood 4.3 g/dL (2.2-4.0); Potassium, Blood 4.2 mmol/L (3.5-5.5); Total Protein, Blood 6.5 g/dL (6.4-8.2)
[2024-06-23 07:21] VITALS: BP 140/75
--- NOTE | 2024-06-23 08:57 | NUR ---
PT REFUSED TO HAVE IV ABX STARTED AT THIS TIME. HE STATES IT MAKES HIM NAUSEATED. REFUSED NAUSEA MEDS WHEN OFFERED. WILL REATTEMPT ADMINISTRATION AFTER PT EATS BREAKFAST.
[2024-06-23] MEDS ORDERED: Ampicillin Sod/Sulbactam Sod 1.5 GM in NS 100 ML IV SCH (10:00)
[2024-06-23 15:12] VITALS: BP 177/93
--- NOTE | 2024-06-23 19:51 | NUR ---
SHIFT SUMMARY- PT ABX WERE CHANGED HE C/O NAUSEA WITH THE PREVIOUS ABX. THIS EVENING THE PT IS IRRITABLE AND STATES HE WANTS TO GO HOME. EXPRESSED HIS DESIRE TO LEAVE WITH DR ROA EARLIER IN THE DAY AND HE EXPLAINED, THE PT IS WELCOME TO LEAVE AMA, HOWEVER THE PLAN IS FOR HIM TO STAY ON IV ABX AT LEAST UNTIL TUESDAY. PT IN BED SLEEPING AT THE TIME OF REPORT. DID NOT WAKE FOR REPORT HE HAS BEEN IRRITABLE WITH ALL THE INTERUPTIONS.
[2024-06-23 20:20] VITALS: BP 185/97
[2024-06-23] MEDS ORDERED: Linezolid 600MG/Iso-Dext 300ML 300 ML IV SCH (21:00)
[2024-06-23] MEDS ORDERED: HYDROcodone 5-APAP 325 TAB PO PRN (22:20)
[2024-06-23] MEDS ORDERED: LORazepam 2 MG/ML 1ML Injection IV PRN (23:05)
[2024-06-24 00:18] VITALS: BP 186/94
[2024-06-24 04:26] VITALS: BP 191/102
[2024-06-24 04:29] VITALS: BP 172/84
--- NOTE | 2024-06-24 04:57 | NUR ---
PT HAS REPORTED BEING NUASEAS T/O DAY. PRN ZOFRAN HAS NOT BEEN EFFECTIVE. AFTER IV ANTIBIOTIC OF LINEZOLID PT WAS DRY HEAVING AND VOMITING. MD INFANTE NOTIFIED WHO ORDERED PRN ATIVAN 0.5-1 MG FOR NAUSEA. PLANTAR ASPECT OF FOOT PUNCTURE SITE OPENED WHILE IN SHOWER. ATTEMPTED TO EXPRESS ECESS DRAINAGE TRAPPED UNDER SUPERFICIAL SKIN AND THEN CLEANSED WITH WOUND CLEANSER AND WRAPPED IN KERLIX.
[2024-06-24 06:07] LABS: BASOPHILS ABSOLUTE AUTO 0.08 K/mm3 (0.00-0.23); BASOPHILS PERCENT AUTO 1 % (0-2); EOSINOPHILS ABSOLUTE AUTO 0.02 K/mm3 (0.00-0.68); EOSINOPHILS PERCENT AUTO 0 % (0-6); Hematocrit 33.4 % (37.0-53.0); Hemoglobin 10.7 g/dL (13.5-17.5); IMMATURE GRAN ABSOLUTE AUTO 0.03 K/mm3 (0.00-0.10); IMMATURE GRAN PERCENT AUTO 0 % (0-1); LYMPHOCYTES PERCENT AUTO 12 % (21-46); MONOCYTES ABSOLUTE AUTO 0.64 K/mm3 (0.16-1.47); MONOCYTES PERCENT AUTO 7 % (4-13); Mean Corpuscular HGB 27.4 pg (26.0-34.0); Mean Corpuscular Volume 85 fL (80-100); Mean Platelet Volume 9.8 fL (9.1-12.4); NEUTROPHILS ABSOLUTE AUTO 7.34 K/mm3 (1.96-9.15); NEUTROPHILS PERCENT AUTO 80 % (41-73); Platelet Count 405 K/mm3 (150-400); RDW Coefficient Variation 14.7 % (11.7-14.2); RDW Standard Deviation 45.2 fL (35.1-46.3); Red Blood Cell Count 3.91 M/mm3 (4.30-5.90); White Blood Cell Count 9.21 K/mm3 (4.00-11.30)
[2024-06-24 06:40] LABS: Albumin, Blood 2.3 g/dL (3.4-5.0); Albumin/Globulin Ratio 0.5 (0.8-1.8); Bilirubin, Total 0.9 mg/dL (0.1-1.0); Bun/Creatinine Ratio 23.1 (12.0-20.0); Calcium, Blood 8.4 mg/dL (8.5-10.1); Creatinine, Blood 3.08 mg/dL (0.60-1.20); Globulin, Blood 4.3 g/dL (2.2-4.0); Potassium, Blood 4.1 mmol/L (3.5-5.5); Total Protein, Blood 6.6 g/dL (6.4-8.2)
[2024-06-24 07:27] VITALS: BP 185/94
--- NOTE | 2024-06-24 13:22 | NUR ---
DR WOODARD CAME TO SEE THE PT AND DEBRIDED THE TOP LAYER OF SKIN OVER THE DRAINING ABCESS. MOST OF THE LOWER LAYERS ARE INTACT FRESH SKIN. WOUND CLEANED WITH IODINE AND COVERED WITH EXUDRY, GAUZE AND UYEN WRAP. PER DR WOODARD THIS SHOULD BE CHANGED Q SHIFT UNTIL THERE IS NO LONGER ANY DRAINAGE.
[2024-06-24] MEDS ORDERED: Ampicillin Sod/Sulbactam Sod 1.5 GM in NS 100 ML IV SCH (16:00)
[2024-06-24 18:05] VITALS: BP 197/103
[2024-06-24 20:38] VITALS: BP 181/96
[2024-06-25 04:59] LABS: BASOPHILS ABSOLUTE AUTO 0.11 K/mm3 (0.00-0.23); BASOPHILS PERCENT AUTO 1 % (0-2); EOSINOPHILS ABSOLUTE AUTO 0.09 K/mm3 (0.00-0.68); EOSINOPHILS PERCENT AUTO 1 % (0-6); Hematocrit 35.5 % (37.0-53.0); Hemoglobin 11.3 g/dL (13.5-17.5); IMMATURE GRAN ABSOLUTE AUTO 0.04 K/mm3 (0.00-0.10); IMMATURE GRAN PERCENT AUTO 0 % (0-1); LYMPHOCYTES PERCENT AUTO 16 % (21-46); MONOCYTES ABSOLUTE AUTO 0.84 K/mm3 (0.16-1.47); MONOCYTES PERCENT AUTO 9 % (4-13); Mean Corpuscular HGB 27.5 pg (26.0-34.0); Mean Corpuscular HGB Conc 31.8 g/dL (31.5-36.5); Mean Corpuscular Volume 86 fL (80-100); Mean Platelet Volume 9.5 fL (9.1-12.4); NEUTROPHILS ABSOLUTE AUTO 6.58 K/mm3 (1.96-9.15); NEUTROPHILS PERCENT AUTO 73 % (41-73); Platelet Count 377 K/mm3 (150-400); RDW Coefficient Variation 14.6 % (11.7-14.2); RDW Standard Deviation 45.2 fL (35.1-46.3); Red Blood Cell Count 4.11 M/mm3 (4.30-5.90); White Blood Cell Count 9.06 K/mm3 (4.00-11.30)
[2024-06-25 05:24] LABS: Albumin, Blood 2.1 g/dL (3.4-5.0); Albumin/Globulin Ratio 0.5 (0.8-1.8); Bilirubin, Total 0.6 mg/dL (0.1-1.0); Bun/Creatinine Ratio 20.7 (12.0-20.0); C-REACTIVE PROTEIN, EXT RANGE 1.42 mg/dL (0.000-0.300); Calcium, Blood 8.2 mg/dL (8.5-10.1); Creatinine, Blood 3.14 mg/dL (0.60-1.20); Globulin, Blood 4.3 g/dL (2.2-4.0); Potassium, Blood 4.3 mmol/L (3.5-5.5); Total Protein, Blood 6.4 g/dL (6.4-8.2)
--- NOTE | 2024-06-25 05:30 | NUR ---
Pt refused vital signs
--- NOTE | 2024-06-25 06:39 | NUR ---
SHIFT SUMMARY: PATIENT HAD AN EPISODE OF VOMITING AFTER IV ABD. AFTER THE 2100 DOSE OF WAS FINISHED. PATIENT WAS IRRITABLE AFTER VOMITING, REFUSED ANY NAUSEA OR ATIVAN, OR ANY ORAL ABX, VS AND [address] INFANTE WAS NOTIFIED, NO NEW ORDERS. BP WAS ELEVATED AT HS, SCHEDULED HTN MEDS WERE GIVEN. UNABLE TO CHECK EFFECTIVENESS DUE TO PATIENT REFUSING VS.
[2024-06-25 08:36] VITALS: BP 177/90
[2024-06-25] MEDS ORDERED: ACET325 PO (13:33)
[2024-06-25] MEDS ORDERED: LINE600 PO (13:34)
[2024-06-25] MEDS ORDERED: VISBIOME 112.51 EACH PO (13:34)
[2024-06-25] MEDS ORDERED: AMOCLA500 PO (14:16)
--- NOTE | 2024-06-25 15:46 | NUR ---
VSS, denies SOB, denies any pain, ambulates independently, A-Ox4, on RA. Lungs clear, heart regular, bowel sound normative, L foot dressing changed, new dressing C/D/I. Pt D/C at 1540, discharge instructions given, safety ensured.
[2024-06-25] MEDS ORDERED: Sodium Bicarbonate 650 MG Tab PO SCH (21:00)
== END 2024-06-25 15:38 | disposition home health service (06) | DRG 854 ==
LOC: ER 19:45 → MEDS 23:16
PROVIDERS: Family Medicine; Physician Assistant; Student in an Organized Health Care Education/Training Program; ADMIT Student in an Organized Health Care Education/Training Program
PROC: 3E03329 Introduction of Other Anti-infective into Peripheral Vein, Percutaneous Approach (ICD-10-PCS; principal; 2024-06-21)
PROC: 0JDR0ZZ Extraction of Left Foot Subcutaneous Tissue and Fascia, Open Approach (ICD-10-PCS; 2024-06-24)
DX: A41.9 Sepsis, unspecified organism (principal); E87.20 Acidosis, unspecified; L03.116 Cellulitis of left lower limb; N18.4 Chronic kidney disease, stage 4 (severe); I13.0 Hypertensive heart and chronic kidney disease with heart failure and stage 1 through stage 4 chronic kidney disease, or unspecified chronic kidney disease; I50.42 Chronic combined systolic (congestive) and diastolic (congestive) heart failure; E11.628 Type 2 diabetes mellitus with other skin complications; E11.622 Type 2 diabetes mellitus with other skin ulcer; E11.22 Type 2 diabetes mellitus with diabetic chronic kidney disease; F17.210 Nicotine dependence, cigarettes, uncomplicated; E11.621 Type 2 diabetes mellitus with foot ulcer; K21.9 Gastro-esophageal reflux disease without esophagitis; Z71.6 Tobacco abuse counseling; Z86.14 Personal history of Methicillin resistant Staphylococcus aureus infection; Z90.49 Acquired absence of other specified parts of digestive tract; Z98.890 Other specified postprocedural states; Z79.2 Long term (current) use of antibiotics; Z79.899 Other long term (current) drug therapy; Z79.4 Long term (current) use of insulin; L97.519 Non-pressure chronic ulcer of other part of right foot with unspecified severity
CPT/HCPCS: 36415; 73630; 73720; 80053; 80202; 82947; 83605; 83735; 85025; 85651; 86140; 87040; 87070; 87205; 96365; 99284-25; A9270; A9579; J0295; J1644; J1815; J2020; J2060; J2405; J2543; J3370; J7050

== ENCOUNTER 2024-08-22 07:11 | Day surgery (SDC) | payer OTHER ==
[2024-08-22] VITALS (8 sets, daily range): BP systolic 161–188; BP diastolic 79–99
[~2024-08-22] VITALS: Ht 167.6 cm; Wt 83.5 kg
[~2024-08-22 07:11] MED LIST changes: +ACET325 PO; +AMOCLA500 PO; +ASSURE PLATINU1 EAC2 MC; +BUME2 PO; +CYCL10 PO; -Insulin Human Lispro 100 Units/ML 3ML Syringe SC SCH; +LINE600 PO; +SODBIC650 PO; +VISBIOME 112.51 EACH PO
[2024-08-22] MEDS ORDERED: Verapamil HCL 2.5 MG/ML 2ML Injection ONE (07:32)
[2024-08-22] MEDS ORDERED: NS 250 ML IV ONE (07:32)
[2024-08-22] MEDS ORDERED: NS 1,000 ML IV ONE ×2 (07:32→07:47)
[2024-08-22] MEDS ORDERED: Heparin Sodium 1000 Units/ML 10ML MDV ONE (07:32)
[2024-08-22] MEDS ORDERED: Nitroglycerin 2 MG/20 ML BTL ONE (07:32)
[2024-08-22] MEDS ORDERED: FentaNYL Citrate 50 MCG/ML 2 ML Injection ONE (07:47)
[2024-08-22] MEDS ORDERED: Midazolam HCl 1MG / ML 2ML Vial ONE (07:47)
[2024-08-22] MEDS ORDERED: HydrALAZINE HCl 20 MG / ML 1ML Vial ONE (08:49)
--- NOTE | 2024-08-22 09:35 | NUR ---
ASSUMED CARE OF PT POST PROCEDURE. PT ALERT AND ORIENTED, PLEASENT AND COOPERATIVE; DENIES CHEST PAIN POST PROCEDURE. MONITOR SR 60'S, B/P 161/79, SOI2 94% RA. R RADIAL SITE NO SWELLING/HEMATOMA, TR BAND IN PLACE; RUE POSITIVE PLEUTH POST TR BAND PLACEMENT. R AC (RHC) SITE NO SWELLING/HEMATOMA, TEGADERM DRSG INTACT.
--- NOTE | 2024-08-22 09:40 | NUR ---
DR SAMUEL INTO REVIEW PROCEDURE RESULTS AND NEXT STEPS WITH PT AND FAMILY.
[2024-08-22] MEDS ORDERED: AMLO10 PO (09:52)
[2024-08-22] MEDS ORDERED: Isosorbide Mono30 MG PO (09:54)
--- NOTE | 2024-08-22 11:10 | NUR ---
TR BAND FULLY DEFLATED, R RADIAL SITE WITHOUT SWELLING/HEMATOMA.
--- NOTE | 2024-08-22 11:47 | NUR ---
PT DRESSED SELF WITHOUT ISSUE, SITE UNCHANGED. TR BAND REMOVED, CLOTH DOT AND WRIST IMMOBILIZER PLACED; IV REMOVED-CANNULA INTACT.
--- NOTE | 2024-08-22 11:50 | NUR ---
PT AMB TO BATHROOM, GAIT STEADY, SITE UNCHANGED.
--- NOTE | 2024-08-22 12:00 | NUR ---
PT AND DAUGHTER RECEIVED DISCHARGE INSTRUCTIONS, MED LIST AND AFTER CARE INSTRUCTIONS; VERBALIZED GOOD UNDERSTANDING. PT LEFT FACILITY VIA W/C, CONDITION STABLE.
== END 2024-08-22 12:00 | disposition home or self-care (01) ==
LOC: MHTC 07:11
DX: I13.0 Hypertensive heart and chronic kidney disease with heart failure and stage 1 through stage 4 chronic kidney disease, or unspecified chronic kidney disease (principal); E11.22 Type 2 diabetes mellitus with diabetic chronic kidney disease; N18.32 Chronic kidney disease, stage 3b; I50.20 Unspecified systolic (congestive) heart failure; I27.22 Pulmonary hypertension due to left heart disease; I25.10 Atherosclerotic heart disease of native coronary artery without angina pectoris; Z87.891 Personal history of nicotine dependence; Z79.4 Long term (current) use of insulin; Z79.899 Other long term (current) drug therapy; Z88.0 Allergy status to penicillin; Z88.5 Allergy status to narcotic agent; Z90.49 Acquired absence of other specified parts of digestive tract; Z86.73 Personal history of transient ischemic attack (TIA), and cerebral infarction without residual deficits
CPT/HCPCS: 76937; 93460; 99152; C1769; C1887; C1894; J0360; J1644; J2250; J3010; J7030; J7050; Q9967

== ENCOUNTER 2024-12-07 11:05 | Day surgery (SDC) | payer OTHER ==
[~2024-12-07] VITALS: Ht 167.6 cm; Wt 92.3 kg
[~2024-12-07 11:05] MED LIST changes: +1/2 NS 250ml250 ML; +AMLO10 PO; +ATOR40TA PO; +CEPH250A PO; +Carvedilol12.5 MG PO; +Isosorbide Mono30 MG PO
[2024-12-07 11:30] VITALS: BP 177/99
[2024-12-07 11:35] VITALS: BP 177/99
[2024-12-07] MEDS ORDERED: NS 250 ML IV ONE (14:46)
[2024-12-07] MEDS ORDERED: Heparin Sodium 1000 Units/ML 10ML MDV ONE (14:46)
[2024-12-07] MEDS ORDERED: Midazolam HCl 1MG / ML 2ML Vial ONE (14:55)
[2024-12-07] MEDS ORDERED: FentaNYL Citrate 50 MCG/ML 2 ML Injection ONE ×2 (14:55→17:38)
[2024-12-07] MEDS ORDERED: NS 500 ML IV ONE (14:57)
[2024-12-07] MEDS ORDERED: Heparin Sodium 10,000 Units/ML 1ML MDV ONE (15:19)
--- NOTE | 2024-12-07 15:58 | NUR ---
PT RETURNED TO RECOVERY ROOM IN RECLINER. RACW PERMCATH SITE SOFT NON-TENDER WITH NO HEMATOMA, NO BLEEDING AND INTACT DRESSING. PT DRINKING SODA AND EATING SANDWICH. CALL LIGHT IN REACH.
[2024-12-07 16:00] VITALS: BP 161/83
[2024-12-07 16:15] VITALS: BP 153/78
--- NOTE | 2024-12-07 16:40 | NUR ---
NO CHANGES TO [facility] SITE. DISCHARGE INSTRUCTIONS REVIEWED ALL QUESTIONS ANSWERED. 20 G IV DISCONINTUED FROM RIGHT AC WITH INTACT CANNULA. PT ESCORTED OUT VIA WHEELCHAIR ESCORT.
== END 2024-12-07 16:49 | disposition home or self-care (01) ==
LOC: MHTC 11:05
DX: I13.2 Hypertensive heart and chronic kidney disease with heart failure and with stage 5 chronic kidney disease, or end stage renal disease (principal); E11.22 Type 2 diabetes mellitus with diabetic chronic kidney disease; N18.6 End stage renal disease; I50.22 Chronic systolic (congestive) heart failure; I25.10 Atherosclerotic heart disease of native coronary artery without angina pectoris; F17.210 Nicotine dependence, cigarettes, uncomplicated; Z79.4 Long term (current) use of insulin; Z79.899 Other long term (current) drug therapy; Z88.0 Allergy status to penicillin; Z90.49 Acquired absence of other specified parts of digestive tract; Z86.73 Personal history of transient ischemic attack (TIA), and cerebral infarction without residual deficits
CPT/HCPCS: 36558; 76937; 99152; C1750; C1769; C1894; J1644; J2250; J3010; J7040; J7050